=== PATIENT | male | born 1945 | race Caucasian/White ===

== ENCOUNTER 2017-07-20 15:31 | Emergency (ER) | payer OTHER ==
--- NOTE | 2017-07-20 15:43 | EDPHY ---
H & P Stated Complaint: Presyncope Time Seen by Provider: 07/20/17 15:43 HPI/ROS: CHIEF COMPLAINT: Presyncope HISTORY OF PRESENT ILLNESS: The patient presents to the ED after an episode of presyncope that occurred an hour and half ago. [place] has been here for the past 3 days. He has been exercising heavily riding his bike without any chest pain or shortness of breath. The patient reportedly went for a fairly hard ride today and towards the end of the ride developed an episode of blurry vision and near syncope. The patient did not have chest pain or shortness of breath. His symptoms lasted approximately 10-15 minutes then resolved. The patient does have a history of hypertension, borderline diabetes and hyperlipidemia. He was concerned about the possibility of a cardiac event which prompted his visit to the emergency department today. The patient is currently asymptomatic. REVIEW OF SYSTEMS: A comprehensive 10 point review of systems is otherwise negative aside from elements mentioned in the history of present illness. Source: Patient - Medical/Surgical History Hx Asthma: No Hx Chronic Respiratory Disease: No Hx Diabetes: Yes Hx Cardiac Disease: No Hx Renal Disease: No Hx Cirrhosis: No Hx Alcoholism: No Hx HIV/AIDS: No Hx Splenectomy or Spleen Trauma: No Other PMH: htn. hyperlipidemia - Social History Smoking Status: Never smoked - Physical Exam Exam: General Appearance: Alert, no distress Eyes: Pupils equal and round no pallor or injection ENT, Mouth: Mucous membranes moist Respiratory: There are no retractions, lungs are clear to auscultation Cardiovascular: Regular rate and rhythm Gastrointestinal: Abdomen is soft and nontender, no masses, bowel sounds normal Neurological: A&O, normal motor function, normal sensory exam, normal cranial nerves Skin: Warm and dry, no rashes Musculoskeletal: Neck is supple nontender Extremities: symmetrical, full range of motion Constitutional: Initial Vital Signs Temperature (C) 37.0 C 07/20/17 15:36 Heart Rate 77 07/20/17 15:36 Respiratory Rate 16 07/20/17 15:36 Blood Pressure 150/96 H 07/20/17 15:36 O2 Sat (%) 97 07/20/17 15:36 O2 Delivery Mode Room Air Allergies/Adverse Reactions: No Known Allergies Allergy (Unverified 07/20/17 15:33) Home Medications: Medication Instructions Recorded Amlodipine Besylate 07/20/17 Irbesartan 07/20/17 Metformin HCl 07/20/17 Simvastatin 07/20/17 Medical Decision Making - Diagnostics EKG Interpretation: EKG: Complete interpretation has been separately recorded in the [facility] archive. Summary impression: Sinus rhythm, 70, PVC Imaging Results: Imaging Impressions Chest X-Ray 07/20/17 15:43 Impression: Mild peribronchial thickening that can be seen with bronchitis or mild fluid overload. ED Course/Re-evaluation: The patient presents the ED after he experienced an episode of presyncope after a workout. The patient has no known history of coronary artery disease. He did not have chest pain or shortness of breath. He had symptoms that began approximately 2 hr prior to arrival. Patient does have risk factors for coronary artery disease which prompted his visit to the emergency department today. The patient arrives and is noted to have a normal EKG. Initial troponin is negative. The patient was observed in the emergency department. He did have a repeat troponin performed at 5:00 p.m.. I discussed the results with the patient. At this point time I see no evidence of myocardial infarction. He does understand that we cannot fully exclude coronary artery disease. The patient would like to follow up with an outpatient with Cardiology. He has been given the number of our on-call Cardiology Clinic. Differential Diagnosis: Differential diagnosis considered includes acute coronary syndrome, dehydration , metabolic abnormality, arrhythmia, anemia, renal failure - Data Points Laboratory Results: Laboratory Results 07/20/17 15:46 07/20/17 15:46 07/20/17 07/20/17 07/20/17 17:15 15:46 15:46 WBC 10.41 10^3/uL H 10^3/uL (3.80-9.50) RBC 5.36 10^6/uL 10^6/uL (4.40-6.38) Hgb 15.8 g/dL g/dL (13.7-17.5) Hct 44.8 % % (40.0-51.0) MCV 83.6 fL fL (81.5-99.8) MCH 29.5 pg pg (27.9-34.1) MCHC 35.3 g/dL g/dL (32.4-36.7) RDW 12.9 % % (11.5-15.2) Plt Count 297 10^3/uL 10^3/uL (150-400) MPV 9.6 fL fL (8.7-11.7) Neut % (Auto) 71.9 % % (39.3-74.2) Lymph % (Auto) 17.7 % % (15.0-45.0) [place] % (Auto) 8.3 % % (4.5-13.0) Eos % (Auto) 1.2 % % (0.6-7.6) Baso % (Auto) 0.5 % % (0.3-1.7) Nucleat RBC Rel Count 0.0 % % (0.0-0.2) Absolute Neuts (auto) 7.49 10^3/uL H 10^3/uL (1.70-6.50) Absolute Lymphs (auto) 1.84 10^3/uL 10^3/uL (1.00-3.00) Absolute Monos (auto) 0.86 10^3/uL H 10^3/uL (0.30-0.80) Absolute Eos (auto) 0.13 10^3/uL 10^3/uL (0.03-0.40) Absolute Basos (auto) 0.05 10^3/uL 10^3/uL (0.02-0.10) Absolute Nucleated RBC 0.00 10^3/uL 10^3/uL (0-0.01) Immature Gran % 0.4 % % (0.0-1.1) Immature Gran # 0.04 10^3/uL 10^3/uL (0.00-0.10) Sodium 140 mEq/L mEq/L (135-145) Potassium 3.9 mEq/L mEq/L (3.5-5.2) Chloride 100 mEq/L mEq/L (97-110) Carbon Dioxide 23 mEq/l mEq/l (22-31) Anion Gap 17 mEq/L H mEq/L (8-16) BUN 16 mg/dL mg/dL (7-23) Creatinine 0.9 mg/dL mg/dL (0.7-1.3) Estimated GFR > 60 Glucose 145 mg/dL H mg/dL (70-100) Calcium 9.7 mg/dL mg/dL (8.5-10.4) Troponin I < 0.012 ng/mL ng/mL < 0.012 ng/mL ng/mL (0.000-0.034) (0.000-0.034) Departure - Departure Disposition: Home, Routine, Self-Care Clinical Impression: Pre-syncope Condition: Good Instructions: Near Syncope (ED) Additional Instructions: 1. Based upon the testing done in the Emergency Department today we see no evidence of a heart attack. 2. We are unable to fully exclude coronary artery disease based upon the testing available in the Emergency Department. 3. For this reason, we would like you to be seen by cardiology for consideration of additional testing within the next 3 days. 4. Please contact the naval architect specialist you have been referred to schedule this appointment as soon as possible. Their offices are typically open from 8:30am- 5pm M-F. 5. Please return to the Emergency Department immediately for any recurrent lightheadedness, chest pain, difficulty breathing or other concerns. Referrals: Percy Corrales MD [Medical Doctor] - As per Instructions
--- NOTE | 2017-07-20 15:45 | CPEKG ---
Heart Rate: 70 RR Interval: 857 P-R Interval: 180 QRSD Interval: 90 QT Interval: 388 QTC Interval: 419 P [place]: 55 QRS [place]: 8 T Wave [place]: 12 EKG Severity - OTHERWISE NORMAL ECG - EKG Impression: SINUS RHYTHM EKG Impression: VENTRICULAR PREMATURE COMPLEX Electronically Signed By: Javi Hassan 20-Jul-2017 16:01:19
[2017-07-20 16:04] LABS: PLATELET COUNT 297 10^3/uL (150-400)
[2017-07-20 17:50] VITALS: BP 155/107
== END 2017-07-20 18:17 | disposition home or self-care (01) ==
DX: R55 Syncope and collapse (principal); I10 Essential (primary) hypertension; E11.9 Type 2 diabetes mellitus without complications; Z79.84 Long term (current) use of oral hypoglycemic drugs